=== PATIENT | male | born 1995 | race Hispanic/Latino ===

== ENCOUNTER 2019-03-04 21:34 | Emergency (ER) | payer MEDICAID ==
[~2019-03-04 21:34] MED LIST: ALBU0.63 IH; AMOX600S16 PO; AZIT200S47 PO; GUAI100S13 PO
[2019-03-04] MEDS ORDERED: SODIUM CHLORIDE 0.9% 1000ML 1,000 ML IV ONE (21:58)
[2019-03-04] MEDS ORDERED: IPRATROPIUM/ALBUTEROL SULFATE 3 ML SOLUTION IH ONE (22:08)
[2019-03-04] MEDS ORDERED: LEVOFLOXACIN 500 MG/D5W 100 ML 100 ML ONE (22:19)
[2019-03-04] MEDS ORDERED: CEFTRIAXONE SODIUM 1 GM ONE (22:19)
[2019-03-04 22:21] LABS: BASOPHILS % (AUTO) 0.2 % (0.0-5.0); EOSINOPHILS % (AUTO) 0.3 % (0.0-8.0); HEMATOCRIT 40.4 % (42-54); MEAN CORPUSCULAR HEMOGLOBIN 31.3 pg (27.0-33.0); MEAN CORPUSCULAR HGB CONC 35.3 g/dL (32.0-36.0); MEAN CORPUSCULAR VOLUME 88.8 fL (79-99); MONOCYTES % (AUTO) 4.1 % (3.0-13.0); NEUTROPHILS % (AUTO) 88.4 % (40.0-77.0); PLATELET COUNT (AUTO) 243 K/uL (130-400); RED BLOOD CELL COUNT(AUTO) 4.56 MIL/uL (4.50-6.20); RED CELL DISTRIBUTION WIDTH 12.8 % (11.0-15.5); WHITE BLOOD COUNT (AUTO) 15.8 K/uL (4.8-10.8)
[2019-03-04 22:34] LABS: CREATININE 0.6 mg/dL (0.5-1.5); POTASSIUM 3.8 mmol/L (3.5-5.1)
[2019-03-04 22:38] LABS: ALBUMIN 3.9 g/dL (3.5-5.0); BILIRUBIN,TOTAL 0.6 mg/dL (0.2-1.0); TOTAL PROTEIN, SERUM 8.9 g/dL (6.0-8.3)
[2019-03-04 23:49] LABS: INR 1.09 (0.85-1.15); PARTIAL THROMBOPLASTIN TIME 29.6 SEC (26.3-35.5); PROTHROMBIN TIME 11.4 SEC (9.6-11.6)
[2019-03-05 00:02] LABS: APPEARANCE,URINE SL CLOUDY (CLEAR); BILIRUBIN,URINE SMALL (NEGATIVE); COLOR,URINE YELLOW (YELLOW); GLUCOSE, URINE (UA) NEGATIVE (NEGATIVE); KETONES,URINE >=80 mg/dL (NEGATIVE); LEUKOCYTE ESTERASE ,URINE NEGATIVE (NEGATIVE); NITRATE,URINE NEGATIVE (NEGATIVE); OCCULT BLOOD,URINE LARGE (NEGATIVE); PROTEIN,URINE TRACE mg/dL (NEGATIVE)
[2019-03-05 00:16] LABS: BACTERIA,URINE Few /HPF (None Seen); MUCUS,URINE Few LPF (None Seen); SQUAMOUS EPITHELIAL CELL,UR 0-2 /HPF (0-2); YEAST,URINE BUDDING Few /HPF (None Seen)
[2019-03-05] MEDS ORDERED: SODIUM CHLORIDE 0.9% 1000ML 1,000 ML IV SCH (00:35)
[2019-03-05] MEDS ORDERED: CEFTRIAXONE SODIUM 1 GM IV SCH (00:45)
[2019-03-05] MEDS ORDERED: AZITHROMYCIN 500MG+NS 250ML 250 ML IV SCH (00:45)
[2019-03-05] MEDS ORDERED: AZITHROMYCIN 500MG+NS 250ML 250 ML IV ONE (01:41)
[2019-03-05] MEDS ORDERED: SODIUM CHLORIDE 0.9% 1000ML 1,000 ML IV ONE (01:42)
[2019-03-05] MEDS ORDERED: IPRATROPIUM/ALBUTEROL SULFATE 3 ML SOLUTION IH SCH (06:00)
[2019-03-05] MEDS ORDERED: FAMOTIDINE/PF 20 MG/2 ML VIAL IV SCH (09:00)
== END 2019-03-05 04:24 | disposition short-term general hospital (02) ==
LOC: EDH 21:34
DX: J18.9 Pneumonia, unspecified organism (principal); G80.9 Cerebral palsy, unspecified; E86.0 Dehydration
CPT/HCPCS: 31720; 36415; 71045; 80053; 81001; 82150; 82550; 83605; 83690; 84484; 85025; 85610; 85730; 87040; 87071; 87205; 87804 ×2; 93005; 94640; 94664; 96365; 96366; 96367; 96375; 99285; J0456; J0696; J1956; J7030 ×2